=== PATIENT | female | born 1945 | race Caucasian/White ===

== ENCOUNTER 2017-09-21 07:56 | Emergency (ER) | payer MEDICARE, OTHER ==
[2017-09-21 08:13] VITALS: BP 130/74
--- NOTE | 2017-09-21 10:09 | UC ---
Chan Pemberton Stephanie, scribed for TeaDerian nolen MD on 09/21/17 at 0959 . General HPI - HPI Summary HPI Summary: In room notes: The pt is a 72 y/o F presenting to with c/o general joint pain that began 3 weeks ago. Symptoms include muscle spasms on the lower back, bilateral ankles, knees and shoulders swollen and has worsened over past 3 weeks. Recent illness and treatment of bronchitis. Pt states she took sinthroid at 05:00, lucinopril. The pt denies abd pain. notes: Vital signs stable. Afebrile. 8/10 back discomfort. Visit hx is significant for HTN and Hashimotos . pt is being treated for HTN. Nurse notes: pt states she is starting to have muscle spasms. pt states she is fighting bronchitis for 6 weeks. pt saw PCP given Claritin and Flonase. pt states she is having a systemic arthritis attack. Multiple jaws are involved. her back is spasming, this is causing her the most worry. - History of Current Complaint Chief Complaint: UCBackPain Stated Complaint: BACK PAIN Time Seen by Provider: 09/21/17 09:29 Hx Obtained From: Patient Onset/Duration: Gradual Onset, Lasting Weeks - 3, Still Present Timing: Constant Current Severity: Moderate Pain Intensity: 8 Pain Location at: shoudlers, wrists, ankles, hands, lower back, knees Associated Signs & Symptoms: Negative: Abdominal Pain - Allergy/Home Medications Allergies/Adverse Reactions: Allergies Allergy/AdvReac Type Severity Reaction Status Date / Time aspirin [From Percodan] Allergy Hives Verified 09/21/17 08:14 codeine Allergy Hallucinati Verified 09/21/17 08:14 ons morphine Allergy Vomiting Verified 09/21/17 08:14 oxycodone [From Percodan] Allergy Hives Verified 09/21/17 08:14 Home Medications: Home Medications Fluticasone NASAL SPRAY 50MCG* [Flonase NASAL SPRAY 50MCG*] 2 spray BOTH NARES DAILY 09/21/17 [History Confirmed 09/21/17] Lisinopril 10 mg PO 09/21/17 [History] LoraTADine TAB(NF) [Claritin 10 MG TAB(NF)] 10 mg PO DAILY 09/21/17 [History Confirmed 09/21/17] Naproxen Sodium [Aleve] 440 mg PO 09/21/17 [History] PMH/Surg Hx/FS Hx/Imm Hx Endocrine History: Thyroid Disease - cj thyroid disease Cardiovascular History: Hypertension - Surgical History Surgical History: Yes Surgery Procedure, Year, and Place: Thyroid surgery. cholecystectomy - Family History Known Family History: Positive: Other - cancer, multiple sclerosis Negative: Renal Disease - Social History Occupation: Retired Lives: With Family Alcohol Use: None Substance Use Type: None Smoking Status (MU): Never Smoked Tobacco Have You Smoked in the Last Year: No Review of Systems Constitutional: Negative Skin: Negative Eyes: Negative ENT: Negative Respiratory: Negative Cardiovascular: Negative Gastrointestinal: Negative Genitourinary: Negative Motor: Negative Neurovascular: Negative Musculoskeletal: Other: - muscle spasm in lower back, bilateral shoulder, wrist , hand, arm, and knee pain Neurological: Negative Psychological: Negative All Other Systems Reviewed And Are Negative: Yes - Comments Additional Review of Systems Comments: Negative: abd pain Positive: lower back muscle spasms, bilateral joint pain in shoulders, arms, wrists, hands, knees Physical Exam - Summary Physical Exam Summary: Appearance: The patient is well-appearing, is in no pain distress, and is well- nourished. Eyes: Conjunctiva are clear. ENT: The hearing is grossly normal, the pharynx is normal, and the TMs are normal. There is no muffled or hoarse voice. Neck: The neck is supple and there is no lymphadenopathy. Respiratory: The chest is nontender. The lungs are clear, there are normal breath sounds, and there is no respiratory distress. Cardiovascular: Heart is regular rate and rhythm. There is no murmur. Abdomen: The abdomen is soft and nontender. There is no organomegaly. Bowel sounds: present Musculoskeletal: Strength is intact. The patient moves all extremities. MILD TENDERNESS TO PALPATION OF R SHOULDER. MILD SWELLING OF BOTH HANDS AND DISCOMFORT WITH FINGER FLEXION. RESTRICTED FLEXION SECONDARY TO PAIN. NO ERYTHEMA OR SWELLING OVER KNEES Neurological: The patient is alert. Psychological: The patient displays age appropriate behavior Skin: Negative for rashes. Triage Information Reviewed: Yes Vital Signs: Initial Vital Signs Temp 97.8 F 09/21/17 08:08 Pulse 86 09/21/17 08:08 Resp 18 09/21/17 08:08 BP 130/74 09/21/17 08:08 Pulse Ox 97 09/21/17 08:08 Vital Signs Reviewed: Yes Course/Dx - Course Course Of Treatment: Medications have been included in the original chart and reviewed.Elevated BP but has current hypertension diagnosis and treatment. This should be rechecked a few times in the next month. physician discussed her hand discomfort secondary to arthritis as well as her lumbar muscle discomfort. Physician recommended high-dose ibuprofen for 2 days and a combination of ice and heat to back and muscle relaxant. - Differential Dx - Multi-Symptom Provider Diagnoses: arthritis; muscle spasm, lumbar Discharge - Sign-Out/Discharge Documenting (check all that apply): Discharge/Admit/Transfer - Discharge - Discharge Plan Condition: Stable Disposition: HOME Prescriptions: Cyclobenzaprine TAB* [Flexeril 10 MG TAB*] 10 mg PO BID #10 tab Patient Education Materials: Muscle Spasm (ED), Arthritis (ED) Referrals: Antonio Dewey MD [Primary Care Provider] - 3 Days Additional Instructions: WE DISCUSSED: 1. You have arthritis causing discomfort in your hands and tightness in your shoulder because of muscle tension. 2. Begin ibuprofen 600-800mg, three times a day, for 2 days. Then decrease to 400mg, 3 times a day. 3. For discomfort, you can also take acetaminophen 500mg, three times a day, along with the ibuprofen. 4. Warm moist heat, to areas of discomfort. 5. Flexeril for muscle spasm; this may cause drowsiness. 6. Call your caregiver on Saturday for follow up for continued discomfort. - Billing Disposition and Condition Condition: STABLE Disposition: HOME The documentation as recorded by the Chan victor Stephanie accurately reflects the service I personally performed and the decisions made by , Derian Burleson MD.
== END 2017-09-21 10:08 | disposition home or self-care (01) ==
LOC: UCEAST 07:56
DX: M19.91 Primary osteoarthritis, unspecified site (principal); M62.830 Muscle spasm of back; E06.3 Autoimmune thyroiditis; I10 Essential (primary) hypertension; Z88.6 Allergy status to analgesic agent; Z88.5 Allergy status to narcotic agent
CPT/HCPCS: 99212; G0463

== ENCOUNTER 2018-01-02 17:47 | Emergency (ER) | payer MEDICARE, OTHER ==
--- OUTSIDE RECORDS SUMMARY | 2018-01-02 17:52 | XMS REPORT ---
:1945 External Reference #:[id number] Author Organization [employer] Address [address] [place] [address] Phone [phone] Care Team Providers Name Role Phone Antonio Dewey MD Primary Care Physician Unavailable Payers Type Date Identification Numbers Payment Provider Subscriber Medicare Primary Policy Number: [id number] Medicare Thuy Tilley PayID: [id number] [address] [place] [address] Commercial Policy Number: [id number] [facility] Thuy Tilley PayID: [id number] [address] [place] [address] Problems Description No Information Family History Date Family Member(s) Problem(s) Comments General Hypertension General Rheumatoid Arthritis General Stroke Social History Type Date Description Comments Lives With Spouse Occupation Retired ETOH Use Denies alcohol use Smoking Patient has never smoked Exercise Type/Frequency Exercises sporadically Allergies, Adverse Reactions, Alerts Date Description Reaction Status Severity Comments 10/17/2017 Codeine active hallucinations,headach e 10/17/2017 Morphine active vomiting 10/17/2017 Percodan Reformulated September active hives 2008 Medications Medication Date Status Form Strength Qnty SIG Indications Ordering Provider Chlorpheniramine 0 Active Tablets 4mg Unknown Maleate 000 Vitamin D3 Active 400Iu Unknown 000 Levothyroxine Active Tablets 175mcg 1 by Unknown Sodium 000 mouth every day Lisinopril-Hydrochl Active Tablets 20-12.5mg 1 by Unknown orothiazide 000 mouth every day Loratadine 0 Active Tablets 10mg 1 by Unknown 000 mouth every day Metformin HCL 0 Active Tablets 500mg 1 by Unknown 000 mouth twice a day Multivitamin Adult Active Tablets 1 by Unknown 000 mouth every day Vitamin C Active Tablets 500mg 1 by Unknown 000 mouth every day Medications Administered in Office Medication Date Status Form Strength Qnty SIG Indications Ordering Provider Depomedrol Administered Injection Janet 40MG 018 Ramirez Babb Depomedrol Administered Injection Janet 40MG 018 Ramirez Babb Vital Signs Date Vital Result Comment 12/20/2017 Height 64 inches 5'4" Weight 226.12 lb Heart Rate 58 /min BP Systolic Sitting 108 mmHg BP Diastolic Sitting 62 mmHg Respiratory Rate 14 /min Pain Level 3 BMI (Body Mass Index) 38.8 kg/m2 11/07/2017 Height 64 inches 5'4" Heart Rate 52 /min BP Systolic 128 mmHg BP Diastolic 70 mmHg Respiratory Rate 16 /min Body Temperature 98.0 F Pain Level 1 10/17/2017 Height 64 inches 5'4" Weight 229.00 lb BP Systolic 140 mmHg BP Diastolic 90 mmHg Respiratory Rate 18 /min Body Temperature 96.5 F Pain Level 5 BMI (Body Mass Index) 39.3 kg/m2 Results Description No Information Procedures Date CPT Code Description Status 10/17/2017 95407 Inject Tendon Sheath Or Ligament Aponeurosis Eg Plantar Completed Fascia 10/17/2017 80051 Inject Tendon Sheath Or Ligament Aponeurosis Eg Plantar Completed Fascia Encounters Type Date Location Provider CPT E/M Dx Office Visit 12/20/2017 [facility] Tyrese Leiva M.D. 86003 M35.3 11:00a Of [facility] M06.4 R20.8 Z79.52 M54.2 M25.519 Office Visit 11/07/2017 10:45a [facility] Janet Babb 71342 M65.342 Of [facility] M65.332 M65.341 M65.331 Office Visit 10/17/2017 8:30a [facility] Janet Babb 25916 M79.641 Of [facility] M79.642 M65.342 M65.332 M65.341 M65.331 Plan of Care Future Appointment(s):01/23/2018 11:40 am - Tyrese Leiva M.D. at [facility]12/20/2017 - Tyrese Leiva M.D.M35.3 Polymyalgia izqxjeynyaD64.4 Inflammatory vhmneilfneudbobH94.8 Other disturbances of skin ojalrhscxL22.52 service officer (current) use of systemic sttslnksH17.2 YylhwqvibdlX52.519 Pain in unspecified shoulderFollow up:Follow up in 3 to 4 weeks or sooner if needed
[2018-01-02 18:12] VITALS: BP 135/74
--- NOTE | 2018-01-02 18:28 | UC ---
Complaint Female HPI - HPI Summary HPI Summary: A 72 y/o female presents to [facility] c/o UTI symptoms reaching 4/10 in severity. As per triage, "C/O DYSURIA STARTING AT ~1700 TONIGHT". According to the patient , she has been experiencing a burning sensation and dysuria since 1700 tonight. She denies any pain in her bladder, fever or chills, however she did feel cold and fatigued this afternoon due to lili peaches. She stated that the symptoms she feels today is similar to her UTI in the past as she had them sporadically. Last UTI was 8 years ago. - History Of Current Complaint Chief Complaint: UCGU Stated Complaint: BURNING URINATION Time Seen by Provider: 01/02/18 18:15 Hx Obtained From: Patient Onset/Duration: Sudden Onset, Lasting Hours, Still Present Timing: Constant Severity Initially: Moderate Severity Currently: Moderate Pain Intensity: 4 Pain Scale Used: 0-10 Numeric Radiates to: No Aggravating Factor(s): Nothing Alleviating Factor(s): Nothing Associated Signs And Symptoms: Positive: Negative - Allergies/Home Medications Allergies/Adverse Reactions: Allergies Allergy/AdvReac Type Severity Reaction Status Date / Time aspirin [From Percodan] Allergy Hives Verified 01/02/18 18:12 codeine Allergy Hallucinati Verified 01/02/18 18:12 ons morphine Allergy Vomiting Verified 01/02/18 18:12 oxycodone [From Percodan] Allergy Hives Verified 01/02/18 18:12 Home Medications: Home Medications Cyanocobalamin TAB* [Vitamin B12 TAB*] 5,000 mcg PO DAILY 01/02/18 [History Confirmed 01/02/18] Ibuprofen TAB* [Advil TAB*] 200 mg PO PRN 01/02/18 [History] Lisinopril/HCTZ 10/12.5(NF) [Zestoretic 10/12.5(NF)] 1 tab PO DAILY 01/02/18 [ History Confirmed 01/02/18] diPHENhydraMINE PO* [Benadryl PO 25 MG TAB*] 25 mg PO PRN 01/02/18 [History] PMH/Surg Hx/FS Hx/Imm Hx - Additional Past Medical History Additional PMH: Arthritis and Bursitis Endocrine History: Diabetes - POSITIVE: Pre-DM Cardiovascular History: Hypertension - POSITIVE - Surgical History Surgical History: Yes Surgery Procedure, Year, and Place: Thyroid surgery. cholecystectomy, TONSILLECTOMY, HYSTERECTOMY, 2ND THYROID SURGERY - Family History Known Family History: Positive: Other - cancer, multiple sclerosis Negative: Renal Disease - Social History Alcohol Use: None Substance Use Type: None Smoking Status (MU): Never Smoked Tobacco Have You Smoked in the Last Year: No Review of Systems Constitutional: Negative Skin: Negative Eyes: Negative ENT: Negative Respiratory: Negative Cardiovascular: Negative Gastrointestinal: Negative Genitourinary: Dysuria, Vaginal/Penile Burning, Vaginal/Penile Pain Motor: Negative Neurovascular: Negative Musculoskeletal: Negative Neurological: Negative Psychological: Negative Is Patient Immunocompromised?: No All Other Systems Reviewed And Are Negative: Yes Physical Exam - Summary Physical Exam Summary: General: well-appearing, no pain distress Skin: warm, color reflects adequate perfusion, dry Head: normal Eyes: EOMI, JUANJOSE ENT: normal Neck: supple, nontender Respiratory: CTA, breath sounds present Cardiovascular: RRR Abdomen: soft, nontender Bowel: present Musculoskeletal: normal, strength/ROM intact Neurological: sensory/motor intact, A&O x3 Psychological: affect/mood appropriate Triage Information Reviewed: Yes Vital Signs: Initial Vital Signs Temp 98.5 F 01/02/18 18:06 Pulse 89 01/02/18 18:06 Resp 16 01/02/18 18:06 BP 135/74 01/02/18 18:06 Pulse Ox 99 01/02/18 18:06 Vital Signs Reviewed: Yes Complaint Female Dx - Course Course Of Treatment: Medications reviewed. Allergies noted. RX BACTRIM. F/U PMD; RECHECK SOONER IF WORSE. - Differential Dx/Diagnosis Provider Diagnoses: UTI Discharge - Sign-Out/Discharge Documenting (check all that apply): Patient Departure - DISCHARGE All imaging exams completed and their final reports reviewed: No Studies - Discharge Plan Condition: Stable Disposition: HOME Prescriptions: Sulfamethox/Trimethoprim DS* [Bactrim DS 800/160 TAB*] 1 tab PO BID #14 tab Patient Education Materials: Urinary Tract Infection in Women (ED) Referrals: Antonio Dewey MD [Primary Care Provider] - Additional Instructions: FOLLOW UP WITH YOUR DOCTOR IF NOT COMPLETELY IMPROVED. GET RECHECKED FOR ANY WORSENING OF YOUR CONDITION; PAIN, FEVER, YOU FEEL ILL OR QUESTIONS OR CONCERNS. - Billing Disposition and Condition Condition: STABLE Disposition: Home - Attestation Statements Document Initiated by Willie: Yes Documenting Scribe: Wyatt Newton Provider For Whom Scribe is Documenting (Include Credential): Bertrand Mijares MD Scribe Attestation: I, Wyatt Newton, scribed for Bertrand Mijares MD on 01/02/18 at 1958. Scribe Documentation Reviewed: Yes Provider Attestation: The documentation as recorded by the [email or web address] accurately reflects the service I personally performed and the decisions made by me, Bertrand Mijares MD
--- NOTE | 2018-01-06 07:48 | UC ---
- Progress Note Progress Note: + E. Coli sensitive to bactrim no change ljj 01/06/18 Discharge - Sign-Out/Discharge Documenting (check all that apply): Post-Discharge Follow Up All imaging exams completed and their final reports reviewed: No Studies - Discharge Plan Condition: Stable Disposition: HOME Prescriptions: Sulfamethox/Trimethoprim DS* [Bactrim DS 800/160 TAB*] 1 tab PO BID #14 tab Patient Education Materials: Urinary Tract Infection in Women (ED) Referrals: Antonio Dewey MD [Primary Care Provider] - Additional Instructions: FOLLOW UP WITH YOUR DOCTOR IF NOT COMPLETELY IMPROVED. GET RECHECKED FOR ANY WORSENING OF YOUR CONDITION; PAIN, FEVER, YOU FEEL ILL OR QUESTIONS OR CONCERNS. - Billing Disposition and Condition Condition: STABLE Disposition: Home
== END 2018-01-02 18:57 | disposition home or self-care (01) ==
LOC: UCEAST 17:47
DX: N39.0 Urinary tract infection, site not specified (principal); I10 Essential (primary) hypertension; Z87.440 Personal history of urinary (tract) infections; Z88.6 Allergy status to analgesic agent; Z88.5 Allergy status to narcotic agent; Z79.899 Other long term (current) drug therapy
CPT/HCPCS: 81003; 87077; 87086; 87186; 99212; G0463

== ENCOUNTER 2019-01-15 15:18 | Emergency (ER) | payer MEDICARE, OTHER ==
[2019-01-15] MEDS ORDERED: Tetan/Diph/Pertus SYR(Tdap)* 0.5 ML SYR(BOOSTRIX) use SYR IM ONE (15:56)
--- NOTE | 2019-01-15 16:46 | UC ---
Laceration HPI - HPI Summary HPI Summary: Patient is a 73yo female presenting with a left index finger laceration that happened around 2:30pm while helping a elder. She states she cut it on a the lead material attached to a light fixture. She irrigated the wound before coming and admits to needing a tetanus booster. Notes the wound continues to bleed. She states she takes a baby aspirin everyday for her family history of stroke. She denies much pain and rates it 2/10. She notes full range of motion with no radiating pain. Patient is right hand dominant. - History Of Current Complaint Chief Complaint: UCLaceration Stated Complaint: LEFT FINGET LAC Time Seen by Provider: 01/15/19 16:13 Hx Obtained From: Patient Laceration Location: Finger - left index Mechanism Of Injury: Sharp Trauma Severity: Mild Pain Intensity: 2 Pain Scale Used: 0-10 Numeric Related History: Dominant Hand Right - Allergies/Home Medications Allergies/Adverse Reactions: Allergies Allergy/AdvReac Type Severity Reaction Status Date / Time aspirin [From Percodan] Allergy Hives Verified 01/15/19 15:46 codeine Allergy Hallucinati Verified 01/15/19 15:46 ons morphine Allergy Vomiting Verified 01/15/19 15:46 oxycodone [From Percodan] Allergy Hives Verified 01/15/19 15:46 Home Medications: Home Medications Folic Acid TAB* [Folvite TAB*] 1 mg PO DAILY 01/15/19 [History Confirmed ] Metformin ER (NF) 500 mg PO BID 01/15/19 [History Confirmed 01/15/19] Methotrexate TAB* 4 tab PO WEEKLY 01/15/19 [History Confirmed 01/15/19] predniSONE TAB* [Deltasone TAB*] 5 mg PO DAILY 01/15/19 [History Confirmed 01/15] PMH/Surg Hx/FS Hx/Imm Hx - Surgical History Surgical History: Yes Surgery Procedure, Year, and Place: Thyroid surgery. cholecystectomy, TONSILLECTOMY, HYSTERECTOMY, 2ND THYROID SURGERY - Family History Known Family History: Positive: Other - cancer, multiple sclerosis, Non- Contributory Negative: Renal Disease - Social History Alcohol Use: None Substance Use Type: None Smoking Status (MU): Never Smoked Tobacco Have You Smoked in the Last Year: No Review of Systems All Other Systems Reviewed And Are Negative: No Constitutional: Positive: Negative Skin: Positive: Other - left index finger laceration Neurovascular: Negative: Decreased Sensation, Decreased Pulses Musculoskeletal: Negative: Decreased ROM, Edema Neurological: Negative: Paresthesia, Numbness Physical Exam Triage Information Reviewed: Yes Appearance: Well-Appearing, No Pain Distress, Well-Nourished Vital Signs: Initial Vital Signs Temp 98.8 F 01/15/19 15:41 Pulse 88 01/15/19 15:41 Resp 18 01/15/19 15:41 BP 127/72 01/15/19 15:41 Pulse Ox 99 01/15/19 15:41 Vital Signs Reviewed: Yes Cardiovascular: Positive: Pulses Normal, Brisk Capillary Refill Musculoskeletal: Positive: Strength Intact, ROM Intact, No Edema Skin: Positive: Other - 2cm laceration on palmar surface of left index finger Procedures - Laceration/Wound Repair 1 Location: Other - left index finger Description: Linear Anesthesia: Local, 1.0%, Lido Laceration/Wound Explored: clean, no foreign body removed Closure: Single Layer Debridement: minimal Suture Type: Prolene Number of Sutures: 4 Layer Closure?: Yes Sterile Dressing Applied?: Yes Laceration Repair - Laceration Repair 1 Description: Linear Laceration Size After Repair: Length (cm) - 2 Type Injection: Local Anesthesia Used: 1.0% Lido Closure Material: Sutures Closure Method: Single Layer Suture Of: Skin Suture Type: Prolene Laceration Course/Dx - Course/Dx Course Of Treatment: Discussed with patient to keep finger clean and dry. Patient directed to return or go to emergency room if wound comes apart, if it continues bleeding, if finger becomes red, warm to touch, or she sees any discharge. Patient directed to return or go to ER if she experiences inability to move the finger or it becomes pale and cold. She may take over the counter pain medications as directed for pain relief. Patient directed to return or follow up with your primary care physician to have stitches removed in 12-14 days. Patient voiced understanding and agreed to treatment plan. - Diagnosis Provider Diagnosis: Laceration of finger of left hand Discharge ED - Sign-Out/Discharge Documenting (check all that apply): Patient Departure All imaging exams completed and their final reports reviewed: No Studies - Discharge Plan Condition: Stable Disposition: HOME Patient Education Materials: Finger Laceration (ED) Referrals: Antonio Dewey MD [Primary Care Provider] - Additional Instructions: Keep finger clean and dry. Return or go to emergency room if wound comes apart, if it continues bleeding, if finger becomes red, warm to touch, or you see any discharge. Return or go to ER if you experience inability to move the finger or it becomes pale and cold. You may over the counter pain medications as directed for pain relief. Return or follow up with your primary care physician to have stitches removed in 12-14 days. - Billing Disposition and Condition Condition: STABLE Disposition: Home
[2019-01-15] MEDS ORDERED: Lidocaine 1% MPF ** 5 ML VIAL INJ ONE (16:47)
[2019-01-15 17:56] VITALS: BP 123/67
== END 2019-01-15 17:54 | disposition home or self-care (01) ==
LOC: UCEAST 15:18
DX: S61.211A Laceration without foreign body of left index finger without damage to nail, initial encounter (principal); W26.9XXA Contact with unspecified sharp object(s), initial encounter; Y92.9 Unspecified place or not applicable; Z88.5 Allergy status to narcotic agent; Z23 Encounter for immunization
CPT/HCPCS: 12001; 90471; 90715; 99211; G0463